=== PATIENT | male | born 1965 | race Hispanic/Latino ===

== ENCOUNTER → 2017-10-31 | Outpatient (CLI) | payer MEDICARE ==
[~2017-10-31] MED LIST: FLOMAX0.4 MG PO
--- NOTE | 2017-10-31 11:18 | Diagnostic Imaging Report ---
PROCEDURE:X-RAY ABDOMEN - KUB COMPARISON:KUB 02/14/17. INDICATIONS:CALCULUS OF THE KIDNEY FINDINGS: No dilated loops of bowel or abnormal air-fluid levels patterns. No free air underneath the diaphragm. Visualized portions of the lung bases are clear. No definite calcifications are seen overlying the urinary system. Phleboliths are present in the pelvis. Prostatic brachytherapy markers are noted. Five non-rib bearing lumbar type vertebral bodies identified. CONCLUSION: No radiographic evidence of urinary stone. Dictated by: FABIAN BLAKE M.D. on 10/31/2017 at 8:35 Electronically approved by: FABIAN BLAKE M.D. on 10/31/2017 at 8:35
--- NOTE | 2017-10-31 11:18 | Diagnostic Imaging Report ---
PROCEDURE:US RETROPERITONEAL ( KIDNEY ). COMPARISON:Renal ultrasound 02/14/17. INDICATIONS:Calculus Of Kidney TECHNIQUE: Mcintosh-scale and color sonographic images of the bilateral kidneys and bladder where obtained in transverse and longitudinal planes. FINDINGS: RIGHT KIDNEY: 10.7 cm in length, cortical thickness 2.3 cm. Cysts: None Solid masses: Small hyperechoic mass is less conspicuous than described on the comparison ultrasound and measures 0.3 x 0.3 x 0.4 cm, previously 0.7 x 0.4 x 0.5 cm. This was shown to represent an angiomyolipoma on prior CT examinations, including 11/09/2015. Stones: Two echogenic foci measuring 3 mm and 5 mm, in the mid pole likely stones. Hydronephrosis: None Echogenicity: Normal renal cortical echogenicity. LEFT KIDNEY: 12.5 cm in length, cortical thickness 2.3 cm. Cysts: None Solid masses: None Stones: None Hydronephrosis: None Echogenicity: Normal renal cortical echogenicity. Bladder: Unremarkable. Bilateral ureteral jets are identified. Prostate: 3.9 x 3.7 x 3.6 cm, estimated volume 27.3 cc. The prostate is nodular in apperance. CONCLUSION: Non-obstructing right sided renal stones measuring 3 mm and 5 mm. Small right renal angiomyolipoma, less conspicuous than noted on the comparison examination 01/26/2016. Dictated by: FABIAN BLAKE M.D. on 10/31/2017 at 9:11 Electronically approved by: FABIAN BLAKE M.D. on 10/31/2017 at 9:11
== END ==
LOC: US 07:39
PROVIDERS: ATTEND Urology
DX: N20.0 Calculus of kidney (principal)
CPT/HCPCS: 74018; 76770

== ENCOUNTER → 2018-05-09 | Outpatient (CLI) | payer MEDICARE ==
--- NOTE | 2018-05-09 09:12 | Diagnostic Imaging Report ---
EXAM: ABDOMEN-1VIEW (KUB) DATE: 05/09/2018 8:46 AM INDICATION: Kidney stone COMPARISON: None FINDINGS: 2 supine views of the abdomen show a normal distribution of air in the small and large bowel. There are surgical clips in the lower midline pelvis. No specific abnormal soft tissue calcification is seen. The renal areas are partially obscured by overlying bowel material and small calcifications might be obscured. No calcification is identified along the expected path of either ureter. Small round calcifications in the right hemipelvis are compatible with phleboliths. IMPRESSION: 1. No bowel dilatation or evidence for obstruction. 2. No abnormal soft tissue calcification is seen, noting that the renal areas are partially obscured by overlying bowel material. Signed by: Dr. Cleve Carrillo M.D. on 05/09/2018 9:08 AM
== END ==
LOC: RAD 08:38
PROVIDERS: ATTEND Urology
DX: N20.0 Calculus of kidney (principal)
CPT/HCPCS: 74018

== ENCOUNTER → 2018-11-15 | Outpatient (CLI) | payer MEDICARE ==
--- NOTE | 2018-11-15 09:27 | Diagnostic Imaging Report ---
Exam: KUB Clinical history: Right lower quadrant pain Comparison: May 09, 2018 Findings: Moderate retained feces are noted throughout the colon. There is no evidence of pneumoperitoneum or pathological calcification. There is nonobstructive bowel gas pattern. Multiple linear metallic structures are noted in the lower pelvic region which may represent radiation seeds versus surgical clips. Degenerative changes are noted in the lower lumbar spine. Impression: 1. Nonobstructive bowel gas pattern with retained feces in the colon. Signed by: Dr. Floyd Gentile MD on 11/15/2018 9:23 AM
--- NOTE | 2018-11-15 11:02 | Diagnostic Imaging Report ---
Renal ultrasound Clinical History: Renal stone Comparison: Renal ultrasound, October 31, 2017 Discussion: Sonographic evaluation of the kidneys is performed. The kidneys have normal size and cortical echogenicity. The right kidney measures 11.5 cm in length. The left kidney measures 13.4 cm in length. There is no focal renal mass, hydronephrosis, or shadowing renal calculus. Echogenic shadowing foci measuring 8 x 6 mm and 6 x 7 mm are again noted in the interpolar region right kidney which may represent nonshadowing nonobstructive stones. No perinephric fluid collection is seen. Survey images of the bladder demonstrate no abnormality. Impression: 1. Possible subcentimeter nonshadowing nonobstructive stones in the right kidney, otherwise, unremarkable renal ultrasound. Signed by: Dr. Floyd Gentile MD on 11/15/2018 10:58 AM
== END ==
LOC: US 07:38
PROVIDERS: ATTEND Urology
DX: D41.00 Neoplasm of uncertain behavior of unspecified kidney (principal)
CPT/HCPCS: 74018; 76770

== ENCOUNTER → 2019-02-27 | Outpatient (CLI) | payer MEDICARE ==
--- NOTE | 2019-02-27 08:51 | Diagnostic Imaging Report ---
CT of the abdomen and pelvis, without contrast History: Abdominal pain, history of renal calculus. Comparison: Radiograph and ultrasound from 11/15/2018. Technique: Multidetector CT scanning of the abdomen and pelvis was performed from the level of the lung bases to the inferior pubic rami without the use of contrast material. Coronal and sagittal multiplanar reformations were obtained. RADIATION DOSE: Total DLP: 330.46 mGy*cm Dose modulation, iterative reconstruction, and/or weight based adjustment of the mA/kV was utilized to reduce the radiation dose to as low as reasonably achievable. FINDINGS: A 3 mm pulmonary nodule is identified within the right lung base (axial image 8). The visualized lungs are otherwise unremarkable. The imaged portion of the heart demonstrates no significant abnormalities. The liver is normal in size and attenuation on this noncontrast enhanced examination. The gallbladder is unremarkable. There is no biliary ductal dilatation. The stomach, spleen, pancreas, and bilateral adrenal glands demonstrate an unremarkable noncontrast appearance. The kidneys are normal in size and location. There is no evidence for nephrolithiasis or hydronephrosis. The ureters are normal caliber. The urinary bladder demonstrates no significant abnormalities. Metallic clips are noted in the prostate. Suspected phleboliths noted within the right pelvis. The abdominal aorta is normal course and caliber. The IVC is normal in caliber. Please note evaluation of bowel is limited without the use of enteric contrast material. The visualized loops small large bowel demonstrate no evidence of obstruction or inflammation. There is no ascites or intraperitoneal free air. No abnormally enlarged lymph nodes are identified within the abdomen or pelvis. Degenerative changes noted of the lower lumbar spine. The osseous structures otherwise demonstrate no evidence for acute fracture or destructive process. The extraperitoneal soft tissues are unremarkable. IMPRESSION: No acute abdominopelvic process identified. Pulmonary micronodule identified within the right right lung base. In a low-risk patient, no follow-up is warranted. In a high-risk patient, consider [address] follow-up. Signed by: Dr. Nehemias Delgadillo MD on 02/27/2019 8:47 AM
== END ==
LOC: CT 07:44
PROVIDERS: ATTEND Urology
DX: R10.9 Unspecified abdominal pain (principal); R91.8 Other nonspecific abnormal finding of lung field; Z87.442 Personal history of urinary calculi
CPT/HCPCS: 74176

== ENCOUNTER → 2020-01-08 | Outpatient (CLI) | payer MEDICARE | LOC: RAD 07:23 | PROVIDERS: ATTEND Urology | DX: N20.0 Calculus of kidney (principal) | CPT/HCPCS: 74018 ==

== ENCOUNTER → 2021-07-28 | Outpatient (CLI) | payer MEDICARE | LOC: RAD 07:32 | PROVIDERS: ATTEND Urology | DX: N20.0 Calculus of kidney (principal) | CPT/HCPCS: 74018 ==